=== PATIENT | female | born 1945 | race Caucasian/White ===

== ENCOUNTER 2022-06-03 12:29 | Emergency (ER) | payer MEDICARE, OTHER ==
[~2022-06-03] VITALS: Ht 157.5 cm; Wt 62.6 kg
[~2022-06-03 12:29] MED LIST: CHOLESTEROL MED PO
[2022-06-03 12:52] LABS: HEMATOCRIT 37.3 % (31.2-41.9); MEAN CORPUSCULAR HEMOGLOBIN 32.3 uug (24.7-32.8); MEAN CORPUSCULAR VOLUME 94.2 fL (75.5-95.3); PLATELET COUNT (AUTO) 289 K/uL (179-408)
--- NOTE | 2022-06-03 12:56 | NUR ---
pt roomed and seen by
[2022-06-03] MEDS ORDERED: MORPHINE SULFATE 4 MG/1 ML DISP.SYRIN IV ONE (13:00)
[2022-06-03] MEDS ORDERED: IV NORMAL SALINE 1000 ML BAG IV ONE (13:00)
[2022-06-03] MEDS ORDERED: ONDANSETRON 4 MG/2 ML VIAL IV ONE (13:00)
--- NOTE | 2022-06-03 13:03 | NUR ---
out to CT, stable.
[2022-06-03 13:04] LABS: CREATININE 0.6 mg/dL (0.6-1.3)
[2022-06-03 13:10] LABS: BILIRUBIN,DIRECT 0.1 mg/dL (0.0-0.2); BILIRUBIN,TOTAL 0.6 mg/dL (0.2-1.0); TOTAL PROTEIN, SERUM 7.1 g/dL (6.4-8.2)
[2022-06-03] MEDS ORDERED: MORPHINE SULFATE 4 MG/1 ML DISP.SYRIN ONE (13:12)
[2022-06-03] MEDS ORDERED: ONDANSETRON 4 MG/2 ML VIAL ONE (13:12)
[2022-06-03 13:36] LABS: *BILIRUBIN,URIN NEGATIVE (NEGATIVE); *CLARITY,URINE CLEAR (CLEAR); *COLOR,URINE YELLOW (YELLOW); *KETONES,URINE NEGATIVE (NEGATIVE); *UROBILINOGEN,URINE 0.2 E.U./dl (NORMAL); LEUKOCYTE ESTERASE ,URINE NEGATIVE (NEGATIVE); NITRITE, URINE NEGATIVE (NEGATIVE); UGLUCOSE NEGATIVE (NEGATIVE)
[2022-06-03] MEDS ORDERED: ONDA4TAB5 PO ×2 (13:43→13:52)
[2022-06-03] MEDS ORDERED: HYDR-4209 PO ×2 (13:43→13:52)
[2022-06-03] MEDS ORDERED: AMOX-430 PO ×2 (13:43→13:52)
--- NOTE | 2022-06-03 14:33 | NUR ---
Patient discharged to home in stable condition. Written and verbal after care instructions given. Patient verbalizes understanding of instructions. Stressed follow up or return to ER for worsening s/s. iv removed and pressure dressing applied.
[2022-06-03 14:54] LABS: *BLOOD, URINE TRACE (NEGATIVE)
[2022-06-03 16:21] LABS: BACTERIA,URINE NONE SEEN /HPF (NONE SEEN); RBC,URINE 0-3 /HPF (0-3); SQUAMOUS EPITHELIAL CELL,UR NONE SEEN /HPF (NONE SEEN); WBC,URINE 0-3 /HPF (0-3)
== END 2022-06-03 14:33 | disposition home or self-care (01) ==
LOC: ER 12:29
DX: K57.92 Diverticulitis of intestine, part unspecified, without perforation or abscess without bleeding (principal); R11.2 Nausea with vomiting, unspecified; R19.7 Diarrhea, unspecified; Z88.6 Allergy status to analgesic agent; E78.5 Hyperlipidemia, unspecified
CPT/HCPCS: 99284; 74176; 96374; 96361; 96375; 80076; 80048; 81001; 83690; 85025; 36415; J2405; J2270; J7040; A4663